=== PATIENT | male | born 1965 | race Hispanic/Latino ===

== ENCOUNTER 2018-12-29 01:37 | Emergency (ER) | payer OTHER ==
[2018-12-29] MEDS ORDERED: FAMOTIDINE 20MG TAB 20 MG TAB ONE (02:16)
[2018-12-29] MEDS ORDERED: DEXAMETHASONE SOD PHOSPHATE 10MG/ML 1ML VIAL ONE (02:16)
[2018-12-29] MEDS ORDERED: DiphenhydrAMINE HCL 50 MG/ML VIAL ONE (02:17)
== END 2018-12-29 03:42 | disposition home or self-care (01) ==
LOC: EDH 01:37
DX: T78.40XA Allergy, unspecified, initial encounter (principal); K21.9 Gastro-esophageal reflux disease without esophagitis; Z91.048 Other nonmedicinal substance allergy status; X58.XXXA Exposure to other specified factors, initial encounter
CPT/HCPCS: 96372 ×2; 99284; J1100; J1200